=== PATIENT | female | born 1980 | race African-American/Black ===

== ENCOUNTER → 2019-10-21 | Outpatient (CLI) | payer OTHER ==
--- NOTE | 2019-10-21 18:23 | RAD ---
STUDY: CT head without contrast INDICATION: Acute posterior metastatic headache. COMPARISON: None. TECHNIQUE: Axial CT imaging through the head without the use of intravenous contrast. Sagittal and coronal reformats were obtained. One or more of the following individualized dose reduction techniques were utilized for this examination: 1. Automated exposure control 2. Adjustment of the mA and/or kV according to patient size 3. Use of iterative reconstruction technique. FINDINGS: No acute intracranial hemorrhage. Glass-white matter differentiation is maintained and the deep glass nuclei are well delineated. No midline shift or hydrocephalus. Mild crowding at the foramen magnum, image 2 series 2.. No large scalp hematoma. No depressed calvarial fracture. The visualized paranasal sinuses are normally aerated as are the mastoid air cells and middle ears. IMPRESSION: 1. No acute intracranial abnormality by CT. 2. Mild crowding at the foramen magnum favored on a developmental basis from a degree of cerebellar ectopia. Electronically signed by: MELANIE RIGGS MD (10/21/2019 6:21 PM) [id number]
== END | disposition home or self-care (01) ==
LOC: CT 17:46
PROVIDERS: ATTEND Preventive Medicine Occupational Medicine
DX: G44.319 Acute post-traumatic headache, not intractable (principal); Q04.8 Other specified congenital malformations of brain
CPT/HCPCS: 70450